=== PATIENT | female | born 1945 | race Two or more races ===

== ENCOUNTER 2022-11-06 15:09 | Emergency (ER) | payer MEDICAID, SELFPAY ==
--- NOTE | ~2022-11-06 | XR_ITS ---
EXAMINATION: XR LUMBOSACRAL SPINE CLINICAL INFORMATION: Pain COMPARISON: None available. TECHNIQUE: Three views of the lumbosacral spine. FINDINGS: There is 8mm anterior subluxation of L4 with respect to L5. There is mild curvature of the lower lumbar spine to the left. Bone alignment is otherwise normal. There is degenerative disc disease at L4-L5. There is mild degenerative spondylosis from L2-L3 to L4-L5. 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 XR/XR lumbar spine 2-3V IMPRESSION: Degenerative changes. 8 mm anterior subluxation of L4 with respect L5. This may be related to facet arthritis.
[2022-11-06 16:02] VITALS: BP 137/74; PULSE 84; RESP 18; TEMP 36.9; O2SAT 94; BMI 27.3
--- NOTE | 2022-11-06 16:03 | ED.BACK ---
HPI - Back Pain/Injury General Chief Complaint: General Medical Stated Complaint: right side back and leg pain Time Seen by Provider: 11/06/22 21:34 Source: patient and family Mode of arrival: ambulatory Limitations: no limitations History of Present Illness HPI Narrative: Patient moved from [place] has not seen PCP for a while at home for family checked blood sugar about a month ago was 300 range complaining of now getting worse lately also complaining of tingling sensation in the feet no bowel incontinence patient is ambulatory no fever no chills no nausea no vomiting no abdominal pain Related Data Previous Rx's Medication Instructions Recorded blood-glucose meter #1 ea 11/06/22 metformin 500 mg tablet 500 mg PO BID #60 tabs 11/06/22 tramadol 50 mg tablet 50 mg PO Q8-12H PRN pain #30 tabs 11/06/22 Allergies Allergy/AdvReac Type Severity Reaction Status Date / Time Penicillins Allergy Rash Verified 11/06/22 16:01 Review of Systems Review of Systems: Yes all other systems are reviewed and are negative [facility] Social History Social History Smoked in Last 30 Days: No Use of substances other than those prescribed or required for medical reasons: No Advance Directives: No Advance Directives Information Provided: Yes Physical Exam Vital Signs: Vital Signs: Last Vital Signs Temp 98.6 F 11/06/22 23:25 Pulse 79 11/06/22 23:25 Resp 20 11/06/22 23:25 BP 115/71 11/06/22 23:25 Pulse Ox 93 11/06/22 23:25 O2 Del Method Room Air 11/06/22 23:25 BMI result Body Mass Index 27.3 Appearance: Alert. Oriented X3. No acute distress. Eyes: PERRLA, No Nystagmus ENT: Pharynx normal. Oral Mucosa moist Neck: Normal inspection. Neck supple. CVS: Normal heart rate and rhythm. Pulses normal. Respiratory: No respiratory distress. Equal air entry bilateral, no wheezing/rales/rhonchi Abdomen: Soft and nontender. Bowel sounds are present, no mass palpable, no CVA tenderness Skin: Skin warm and dry. Normal skin color. Normal skin turgor. back: Diffuse tenderness lumbar spine no focal tenderness SLR negative Extremities: No lower extremity edema. No calf tenderness Neuro: Oriented X 3. No motor deficit. No sensory deficit.No cerebellar signs , cranial nerves II-XII intact Course Course Course Narrative: RME - 77 yo Danish speaking female presenting with right sided low back pain that radiates up her back and down her leg. It is acute on chronic, worse the last few days to the point where she can barely walk. 3 of her toes are numb. Recently moved here from [place], has an appointment with PCP in 2 months. No relief with ibuprofen. Family reports they checked her sugar a few days ago and it was 500. No history of DM. +polyuria and polydipsia for 2 months Plan: xray lumbar spine, treat pain, reassess Medications Administered Discontinued Medications Generic Name Dose Route Start Last Admin Trade Name Jace PRN Reason Stop Dose Admin Acetaminophen 975 mg 11/06/22 18:10 11/06/22 18:12 Acetaminophen 325 Mg Tablet PO 11/06/22 18:11 975 mg ONCE ONE Administration Metformin HCl 500 mg 11/06/22 22:16 11/06/22 22:24 Metformin Hcl 500 Mg Tablet PO 11/06/22 22:17 500 mg ONCE ONE Administration Oxycodone HCl 5 mg 11/06/22 22:11 11/06/22 22:24 Oxycodone Hcl Immed Release 5 Mg Tablet PO 11/06/22 22:12 5 mg ONCE ONE Administration Medical Decision Making Medical Decision Making [facility] Narrative: Patient with new onset diabetes diagnosed with chronic low back pain discharge patient on metformin and tramadol advised to follow-up with PCP Differential Diagnosis Differential Diagnoses: The differential diagnosis associated with the presentation includes Diabetes/neuropathy/chronic back Lab Data [facility] Lab Attestation statement: I reviewed the patient's lab results. 11/06/22 16:21 11/06/22 16:21 Labs: Lab Results 11/06/22 11/06/22 11/06/22 Range/Units 16:12 16:21 19:33 WBC 8.0 (4.8-10.8) X10*3/uL RBC 3.99 L (4.20-5.50) X10*6/uL Hgb 11.4 L (12.0-16.0) g/dl Hct 34.5 L (37.0-47.0) % MCV 86.5 (80.0-98.0) fL MCH 28.6 (27.0-33.0) pg MCHC 33.0 (31.0-35.0) g/dl RDW 11.8 (11.0-16.0) % Plt Count 307 (160-400) X10*3/uL MPV 9.3 L (9.4-12.3) fL Immature Gran % (Auto) 0.6 H (0.0-0.4) % Neut % (Auto) 75.5 H (45-73) % Lymph % (Auto) 15.2 L (20-40) % [place] % (Auto) 7.9 (2-11) % Eos % (Auto) 0.6 (0-4) % Baso % (Auto) 0.2 (0-2) % Lymph # (Auto) 1.2 (1.2-4.9) X10*3/uL [place] # (Auto) 0.6 (0.1-1.2) X10*3/uL Eos # (Auto) 0.1 (0.0-0.4) X10*3/uL Baso # (Auto) 0.0 (0.0-0.2) X10*3/uL Abs Immat Gran (auto) 0.05 H (0.00-0.03) X10*3/uL Absolute Neuts (auto) 6.0 (2.0-8.3) x10*3/uL Absolute Nucleated RBC 0.000 (0.0-0.012) X10*3/uL Nucleated RBC % (auto) 0.0 (0.0-0.2) /100WBC Sodium 137 (135-145) mmol/L Potassium 4.2 (3.3-5.1) mmol/L Chloride 99 (96-108) mmol/L Carbon Dioxide 27 (22-29) mmol/L Anion Gap 15 (12-20) BUN 22 H (9-16) mg/dL Creatinine 1.16 (0.5-1.4) mg/dL Estim Creat Clear Calc 34.9 Estimated GFR 46 POC Glucose 321 H (60-115) mg/dL Random Glucose 344 H (60-115) mg/dL Calcium 11.4 H (8.4-10.2) mg/dL Magnesium 1.7 (1.6-2.6) mg/dL Total Bilirubin 0.3 (0.0-1.0) mg/dL Direct Bilirubin 0.2 (0.0-0.5) mg/dL AST 15 (5-31) U/L ALT 18 (0-31) U/L Alkaline Phosphatase 93 (39-117) U/L Total Protein 7.8 (6.5-8.0) g/dL Albumin 4.0 (3.5-5.0) g/dL Urine Color Yellow Urine Appearance Clear Urine pH 5.5 (5.0-9.0) Ur Specific [place] 1.025 (1.005-1.025) Urine Protein 100 (2+) H (Neg-Trace) mg/dL Urine Glucose (UA) 500 H (Negative) mg/dL Urine Ketones Trace (Negative) mg/dL Urine Blood Negative (Negative) Urine Nitrite Negative (Negative) Ur Leukocyte Esterase Negative (Negative) Urine RBC 3-5 H (0-2) /HPF Urine WBC 0-5 (0-5) /HPF Ur Squamous Epith Cells 6-10 (0-2) /HPF Urine Bacteria None Seen (None Seen) Hyaline Casts 3-5 (0-2) /LPF 11/06/22 Range/Units 22:18 WBC (4.8-10.8) X10*3/uL RBC (4.20-5.50) X10*6/uL Hgb (12.0-16.0) g/dl Hct (37.0-47.0) % MCV (80.0-98.0) fL MCH (27.0-33.0) pg MCHC (31.0-35.0) g/dl RDW (11.0-16.0) % Plt Count (160-400) X10*3/uL MPV (9.4-12.3) fL Immature Gran % (Auto) (0.0-0.4) % Neut % (Auto) (45-73) % Lymph % (Auto) (20-40) % [place] % (Auto) (2-11) % Eos % (Auto) (0-4) % Baso % (Auto) (0-2) % Lymph # (Auto) (1.2-4.9) X10*3/uL [place] # (Auto) (0.1-1.2) X10*3/uL Eos # (Auto) (0.0-0.4) X10*3/uL Baso # (Auto) (0.0-0.2) X10*3/uL Abs Immat Gran (auto) (0.00-0.03) X10*3/uL Absolute Neuts (auto) (2.0-8.3) x10*3/uL Absolute Nucleated RBC (0.0-0.012) X10*3/uL Nucleated RBC % (auto) (0.0-0.2) /100WBC Sodium (135-145) mmol/L Potassium (3.3-5.1) mmol/L Chloride (96-108) mmol/L Carbon Dioxide (22-29) mmol/L Anion Gap (12-20) BUN (9-16) mg/dL Creatinine (0.5-1.4) mg/dL Estim Creat Clear Calc Estimated GFR POC Glucose 292 H (60-115) mg/dL Random Glucose (60-115) mg/dL Calcium (8.4-10.2) mg/dL Magnesium (1.6-2.6) mg/dL Total Bilirubin (0.0-1.0) mg/dL Direct Bilirubin (0.0-0.5) mg/dL AST (5-31) U/L ALT (0-31) U/L Alkaline Phosphatase (39-117) U/L Total Protein (6.5-8.0) g/dL Albumin (3.5-5.0) g/dL Urine Color Urine Appearance Urine pH (5.0-9.0) Ur Specific [place] (1.005-1.025) Urine Protein (Neg-Trace) mg/dL Urine Glucose (UA) (Negative) mg/dL Urine Ketones (Negative) mg/dL Urine Blood (Negative) Urine Nitrite (Negative) Ur Leukocyte Esterase (Negative) Urine RBC (0-2) /HPF Urine WBC (0-5) /HPF Ur Squamous Epith Cells (0-2) /HPF Urine Bacteria (None Seen) Hyaline Casts (0-2) /LPF Discharge Plan Discharge Clinical Impression: Diabetes mellitus, Chronic back pain Patient Disposition: Home, Self-Care Instructions: Type 2 Diabetes in Adults: New Diagnosis (DC), Chronic Back Pain (DC) Additional Instructions: Drink plenty of fluid Take medicines for diabetes as prescribed Pain medication as prescribed Follow with PCP for further evaluation management [place] mucho [place] los medicamentos para la diabetes seg?n lo recetado. Medicamentos para el dolor seg?n lo prescrito Siga con el PCP para roberto mayor gesti?n de la evaluaci?n. Prescriptions: New tramadol 50 mg tablet 50 mg PO Q8-12H PRN (Reason: pain) Qty: 30 0RF metformin 500 mg tablet 500 mg PO BID Qty: 60 0RF (DME) blood-glucose meter Kit See Rx Instructions .Route Qty: 1 0RF Rx Instructions: As directed Interventions: ED Discharge Assessment Last Done: 11/06/22 23:27 Discharge Date/Time: 11/06/22 23:28 Print Language: Danish
[2022-11-06 16:24] LABS: MANUAL DIFF FLAG NO
[2022-11-06 16:29] LABS: Basophils Percent Auto 0.2 % (0-2); Eosinophils Absolute Auto 0.1 X10*3/uL (0.0-0.4); Eosinophils Percent Auto 0.6 % (0-4); Hematocrit 34.5 % (37.0-47.0); Hemoglobin 11.4 g/dl (12.0-16.0); Imm Gran Abs Auto 0.05 X10*3/uL (0.00-0.03); Imm Gran Pct Auto 0.6 % (0.0-0.4); Lymphocytes Absolute Auto 1.2 X10*3/uL (1.2-4.9); Lymphocytes Percent Auto 15.2 % (20-40); Mean Corpuscular Hemoglobin 28.6 pg (27.0-33.0); Mean Corpuscular Volume 86.5 fL (80.0-98.0); Mean Platelet Volume 9.3 fL (9.4-12.3); Monocytes Absolute Auto 0.6 X10*3/uL (0.1-1.2); Monocytes Percent Auto 7.9 % (2-11); Neutrophils Percent Auto 75.5 % (45-73); Platelet Count 307 X10*3/uL (160-400); Red Blood Count 3.99 X10*6/uL (4.20-5.50); Red Cell Distribution Width 11.8 % (11.0-16.0)
[2022-11-06 16:40] LABS: Alanine Aminotransferase 18 U/L (0-31); Alkaline Phosphatase 93 U/L (39-117); Anion Gap 15 (12-20); Aspartate Amino Transferase 15 U/L (5-31); Bilirubin Direct 0.2 mg/dL (0.0-0.5); Bilirubin Total 0.3 mg/dL (0.0-1.0); Blood Urea Nitrogen 22 mg/dL (9-16); Calcium 11.4 mg/dL (8.4-10.2); Carbon Dioxide 27 mmol/L (22-29); Chloride 99 mmol/L (96-108); Creatinine Clr Calc Pharmacy 34.9; Estimated Glomerular Filt Rate 46; Glucose Random 344 mg/dL (60-115); Magnesium 1.7 mg/dL (1.6-2.6); Potassium 4.2 mmol/L (3.3-5.1); Sodium 137 mmol/L (135-145); Total Protein 7.8 g/dL (6.5-8.0)
[2022-11-06 17:38] LABS: Glucose, Whole Blood 321 mg/dL (60-115)
[2022-11-06] MEDS: Acetaminophen 325 MG TABLET 975 MG PO (18:12)
[2022-11-06 19:43] LABS: Appearance Urine Clear; Color Urine Yellow; Glucose Urine UA 500 mg/dL (Negative); Leukocyte Esterase Urine Negative (Negative); Nitrite Urine Negative (Negative); PH 5.5 (5.0-9.0); Specific Gravity - Urine 1.025 (1.005-1.025); UMIC TRIGGER UACC YES; Urine Blood Negative (Negative); Urine Ketones Trace mg/dL (Negative); Urine Protein 100 (2+) mg/dL (Neg-Trace)
[2022-11-06 19:48] LABS: Bacteria Urine None Seen (None Seen); WBC Urine 0-5 /HPF (0-5)
[2022-11-06 20:09] VITALS: BP 125/67; PULSE 82; RESP 16; TEMP 37.1; O2SAT 95
--- NOTE | 2022-11-06 20:10 | PC.NURSE ---
this rn assumed cared of pt from waiting room at 1999. pt granddaughter at bedside. lights dimmed. pt calm and cooperative. awaiting to be seen by ed provider
[2022-11-06 22:22] LABS: Glucose, Whole Blood 292 mg/dL (60-115)
[2022-11-06] MEDS: oxyCODONE HCl Immed Release 5 MG TABLET PO (22:24)
[2022-11-06] MEDS: metFORMIN HCl 500 MG TABLET PO (22:24)
--- NOTE | 2022-11-06 23:18 | PC.NURSE ---
late entry- pt medicated according to kostas. pt granddaughter remains at bedside
[2022-11-06 23:25] VITALS: BP 115/71; PULSE 79; RESP 20; TEMP 37; O2SAT 93
--- NOTE | 2022-11-06 23:26 | PC.NURSE ---
pt utilized wheelchair at discharge. pt reports 6/10 pain at this time. pt granddaughter at bedside. discharge packet provided to pt and granddaughter. pt and daughter verbalized understanding of discharge plan
== END 2022-11-06 23:28 | disposition home or self-care (01) ==
PROVIDERS: Physician Assistant; Emergency Provider Internal Medicine
DX: G89.29 Other chronic pain (principal); M54.59 Other low back pain; E11.9 Type 2 diabetes mellitus without complications; R35.89 Other polyuria; Z79.84 Long term (current) use of oral hypoglycemic drugs; Z79.899 Other long term (current) drug therapy
CPT/HCPCS: 36415; 72100; 80048; 80076; 81001; 82947; 83735; 85025; 99283; 99284